=== PATIENT | female | born 1970 | race Caucasian/White ===

== ENCOUNTER 2018-11-29 00:40 | Emergency (ER) | payer SELFPAY ==
[2018-11-29 00:54] VITALS: BP 118/67
[2018-11-29] MEDS: AMOXICILLIN 500 MG CAPSULE PO ONE (00:56)
[2018-11-29] MEDS: KETOROLAC TROMETHAMINE 30 MG/1ML VIAL IM ONE (00:56)
--- NOTE | 2018-11-29 00:56 | ED Physician Documentation ---
General Adult - HISTORIAN Historian: patient - HPI Stated Complaint: headache Chief Complaint: General Adult Onset: days ago Timing: still present Severity: moderate Further Comments: yes (Pt is a 48 yo female with a headache and with sinus pain. Pt has had nausea and neck discomfort.) - ROS CONST: no problems EYES/ENT: other (sinus pressure/pain) CVS/RESP: none GI/: nausea MS/SKIN/LYMPH: none NEURO/PSYCH: headache - PAST HX Past History: other (depression/anxiety, hypothyroidism) Allergies/Adverse Reactions: Allergies Allergy/AdvReac Type Severity Reaction Status Date / Time No Known Allergies Allergy Verified 11/29/18 00:52 Home Medications: Ambulatory Orders Medication Instructions Recorded Bupropion HCl [Bupropion HCl Sr] 1 tab PO DAILY 06/04/18 Escitalopram Oxalate [Lexapro] 1 tab PO DAILY 06/04/18 Levothyroxine Sodium [Tirosint-Mabel] 1 tab PO DAILY 06/04/18 Amoxicillin 500 mg PO Q8H #30 capsule 11/29/18 Clonazepam [Klonopin] 1 mg PO PRN 11/29/18 Thyroid,Pork [Nature-Throid] 130 mg PO DAILY 11/29/18 - SOCIAL HX Smoking History: cigarettes - FAMILY HX Family History: No - VITAL SIGNS Vital Signs: Vital Signs Temp Pulse Resp BP Pulse Ox 98.0 F 80 18 118/67 99 11/29/18 00:46 11/29/18 00:46 11/29/18 00:46 11/29/18 00:46 11/29/18 00:46 - REVIEWED ASSESSMENTS Nursing Assessment Reviewed: Yes Vitals Reviewed: Yes Progress - Progress Progress: Toradol 30 mg IM in ER Rx Amoxicillin 500 mg. Take one every 8 hours for 10 days. 1st dose in ER Nasal washes 1-2 times daily as tolerated. ED Results Lab/Radiology - Orders Orders: ED Orders Category Date Time Status Amoxicillin [Amoxil] Med 11/29/18 00:55 Once 500 mg PO NOW ONE Ketorolac Tromethamine [Toradol] Med 11/29/18 00:54 Once 30 mg IM NOW ONE General Adult Physical Exam - PHYSICAL EXAM GENERAL APPEARANCE: moderate distress EENT: pharynx normal, TM's nml, other (sinus pressure) NECK: normal inspection, supple RESPIRATORY: no resp distress, chest non-tender, breath sounds normal CVS: reg rate & rhythm, heart sounds normal ABDOMEN: soft, no organomegaly, normal bowel sounds BACK: normal inspection, no CVA tenderness SKIN: warm/dry, normal color EXTREMITIES: non-tender, normal range of motion, no evidence of injury NEURO: oriented X3, motor nml, sensation nml Discharge Clincal Impression: sinusitis, sinus headache Prescriptions: Amoxicillin 500 mg PO Q8H #30 capsule Referrals: Leti Saunders MD [Primary Care Provider] - Condition: Good Disposition: 01 HOME, SELF-CARE Decision to Admit: NO Decision Time: 01:03
== END 2018-11-29 01:00 | disposition home or self-care (01) ==
LOC: ED 00:40
DX: R51 Headache (principal); L98.8 Other specified disorders of the skin and subcutaneous tissue
CPT/HCPCS: 96372; 99284; J1885

== ENCOUNTER 2019-01-25 13:04 | Emergency (ER) | payer SELFPAY ==
[2019-01-25 13:19] VITALS: BP 94/61
--- NOTE | 2019-01-25 13:28 | ED Physician Documentation ---
Skin Rash - HISTORIAN Historian: patient - HPI Stated Complaint: mouth sore Chief Complaint: Skin Rash Additional Information: Patient presents to ED with a 2 day history of skin rash to corners of her mouth. She has a history of MRSA and thinks that is what it is. She denies fever, chills, sores in mouth, nausea or vomiting. Onset: days ago (2) Timing: still present Duration: persistent since Location: facial Quality: painful - ROS CONST: denies: fever CVS/RESP: denies: cough EYES/ENT: denies: eye redness, eye itching GI/: denies: vomiting, nausea MS/SKIN/LYMPH: denies: rash NEURO/PSYCH: denies: headache - PAST HX Past History: none, other (MRSA) Other History: none Allergies/Adverse Reactions: Allergies Allergy/AdvReac Type Severity Reaction Status Date / Time No Known Allergies Allergy Verified 01/25/19 13:19 Home Medications: Ambulatory Orders Medication Instructions Recorded Escitalopram Oxalate [Lexapro] 1 tab PO DAILY 06/04/18 Clonazepam [Klonopin] 1 mg PO PRN 11/29/18 Thyroid,Pork [Nature-Throid] 130 mg PO DAILY 11/29/18 Sulfamethoxazole/Trimethoprim 1 each PO DAILY 10 Days #20 tablet 01/25/19 [Bactrim Ds] - SOCIAL HX Smoking History: non-smoker Alcohol Use: none Drug Use: none - FAMILY HX Family History: none - VITAL SIGNS Vital Signs: Vital Signs Temp Pulse Resp BP Pulse Ox 98.6 F 72 20 94/61 98 01/25/19 13:16 01/25/19 13:16 01/25/19 13:16 01/25/19 13:16 01/25/19 13:16 - REVIEWED ASSESSMENTS Nursing Assessment Reviewed: Yes Vitals Reviewed: Yes Skin Rash Physical Exam - EXAM General Appearance: no acute distress, alert Skin: warm,dry, tender indurated area (corners of mouth) Location: face Character: asymmetric, erythematous Symptoms: swelling, induration Extremities: non-tender EENT: eyes nml inspection Neck: no swelling Respiratory: no resp distress, chest non-tender, breath sounds normal CVS: reg. rate & rhythm, heart sounds nml Abdomen: non-tender, nml bowel sounds Neuro/Psych: oriented x3, mood/affect nml Discharge Clincal Impression: Cellulitis, face Prescriptions: Sulfamethoxazole/Trimethoprim [Bactrim Ds] 1 each PO DAILY 10 Days #20 tablet Referrals: Leti Saunders MD [Primary Care Provider] - 2 Days Additional Instructions: 1. Take antibiotic until gone 2. Drink plenty of water daily while on Bactrim 3. Wash affected area twice daily with antibacterial soap, then apply triple antibiotic ointment 4. Follow up with PCP within 1 week 5. Return to ER for new or worsening symptoms Condition: Stable Disposition: 01 HOME, SELF-CARE Decision to Admit: NO Date of Decison to Admit: 01/25/19 Decision Time: 13:28
== END 2019-01-25 13:33 | disposition home or self-care (01) ==
LOC: ED 13:04
DX: L03.211 Cellulitis of face (principal)
CPT/HCPCS: 99283; 99284

== ENCOUNTER 2019-01-26 17:10 | Emergency (ER) | payer SELFPAY ==
--- NOTE | 2019-01-26 17:23 | ED Physician Documentation ---
General Adult - HISTORIAN Historian: patient - HPI Stated Complaint: sore on face Chief Complaint: General Adult Onset: days ago Timing: still present Further Comments: yes (Pt is a 48 yo female with facial celluitis. Pt was seen here yesterday and rx'd bactrim. Pt has had similar sx in the past and insists that Clindamycin is the medication that has worked in the past. Pt has had no improvment in sx, though she has not been on Bactrim an adequate amount of time.) - ROS CONST: no problems EYES/ENT: none CVS/RESP: none GI/: none MS/SKIN/LYMPH: other (facial swelling L side of mouth ) - PAST HX Past History: other (thyroid dz, anxiety) Allergies/Adverse Reactions: Allergies Allergy/AdvReac Type Severity Reaction Status Date / Time No Known Allergies Allergy Verified 01/26/19 17:17 Home Medications: Ambulatory Orders Medication Instructions Recorded Escitalopram Oxalate [Lexapro] 1 tab PO DAILY 06/04/18 Clonazepam [Klonopin] 1 mg PO PRN 11/29/18 Thyroid,Pork [Nature-Throid] 130 mg PO DAILY 11/29/18 Sulfamethoxazole/Trimethoprim 1 each PO DAILY 10 Days #20 tablet 01/25/19 [Bactrim Ds] - SOCIAL HX Smoking History: cigarettes (e-cigarettes) - FAMILY HX Family History: No - VITAL SIGNS Vital Signs: Vital Signs Temp Pulse Resp BP Pulse Ox 94/61 01/25/19 13:32 - REVIEWED ASSESSMENTS Nursing Assessment Reviewed: Yes Vitals Reviewed: Yes Progress - Progress Progress: Rx Clindamycin 300 mg. Take one every 6 hours for 10 days. Rx Mupirocin 2% topical ointment. Apply to affected area two or three times daily. Apply to small area only, less than 10 cm. General Adult Physical Exam - PHYSICAL EXAM GENERAL APPEARANCE: no distress NECK: normal inspection, supple RESPIRATORY: no resp distress, chest non-tender, breath sounds normal CVS: reg rate & rhythm, heart sounds normal BACK: normal inspection SKIN: other (swelling, redness R side of mouth c/w cellulits) EXTREMITIES: non-tender, normal range of motion NEURO: oriented X3, motor nml, sensation nml Discharge Clincal Impression: Cellulitis, face Referrals: Ellebracht,Leti, MD [Primary Care Provider] - Condition: Stable Disposition: 01 HOME, SELF-CARE Decision to Admit: NO Decision Time: 17:32
[2019-01-26 17:25] VITALS: BP 120/63
== END 2019-01-26 17:44 | disposition home or self-care (01) ==
LOC: ED 17:10
DX: L03.211 Cellulitis of face (principal)
CPT/HCPCS: 99283; 99284